=== PATIENT | male | born 1950 ===

== ENCOUNTER → 2021-08-26 | Outpatient (CLI) | payer OTHER, MEDICARE ==
[~2021-08-26] VITALS: Ht 182.9 cm; Wt 86.2 kg
[~2021-08-26] MED LIST: BACLOFEN 10MG T10 MG PO; EUTHYROX75 MCG PO; FENOFIBRATE145 M1 PO; FLEXERIL PO; HYDROCODON-ACE1 EAC7 PO; MELOXICAM15 MG PO; NEURONTIN 300M300 M2 PO; PROTONIX40 M2 PO; RELAFEN500 M1 PO
[2021-08-26 13:54] VITALS: BP 156/85
--- NOTE | 2021-08-26 14:16 | NUR ---
Pain Clinic Assessment: 1. History of Osteoarthritis: Not Applicable History of Rheumatoid Arthritis: Not Applicable 2. Height: 6 ft. 0 in. 182.9 cm. Weight: 190.0 lb. oz. 86.184 kg. Patient's BMI: 25.8 3. Vital Signs: BP: 156/85 Pulse: 73 Resp: 16 Temp: 02 Sat: 98 ECG Mon: 4. Pain Intensity: 7 5. Fall Risk: Dizziness: N Needs help standing or walking: N Fallen in the last 3 months: N Fall risk comments: 6. Patient on Blood Thinner: None 7. History of Hypertension: N 8. Opioid Therapy greater than 6 weeks: Y Opiate Contract Signed: 9. Risk Assessment Tool Provided: 10. Functional Assessment Tool: LOW 11. Recreational Drug Use: Never Drug Type: Tobacco Use: Never Smoker Tobacco Type: Amount or Packs/day: How Many Years: Alcohol Use: Yes Frequency: Weekly Quant: 1-2
--- NOTE | 2021-08-29 07:28 | HPC ---
[facility] [place] [address] PAIN MANAGEMENT CONSULTATION Name: ANDREW GONZALEZ Room #: REG CL M.R.#: [id number] Admission: 08/26/21 Attend Phys: Otto Staley DO Discharge: Date of : 50 Report #: [id number] THIS REPORT FOR: cc: NICOLASA DOWD MD,Otto Saldivar MD, DO ~ cc: Caitlin Dowd M.D. DATE OF SERVICE: 08/26/2021 REFERRING PHYSICIAN: Dr. Caitlin Dowd. CHIEF COMPLAINT: Upper back pain. HISTORY OF PRESENT ILLNESS: As you know, the patient is a very pleasant 71-year-old male with longstanding history of chronic upper back pain. He states pain began somewhere in 1988 and progressively worsened. He notes no specific injury or trauma that may have led to symptom development. He has been treated at various pain clinics in the past, undergoing treatments of trigger point injections, medication management, radiofrequency lesioning of the medial branch nerves of the lumbar spine, all of which according to the patient provided no improvement in symptoms. He reports undergoing radiofrequency lesioning at two different times with the various pain clinics in the [place] area, but again received no benefit with either of the procedures. He has trialled conservative treatment options as well [id number] medications, rest, relaxation and stretching exercises. He has undergone chiropractic and acupuncture therapy with transient benefit. Due to lack of improvement with conservative treatment options and concern of increasing back pain, debilitating enough that the patient is unable to participate in daily activities. The patient was referred to our clinic to discuss treatment options. The patient reports his pain is continuous and steady. He describes the pain as an aching, stabbing and pulling sensation. He places current pain score of 7/10. Daily average at 6-8/10. Worst pain has been is 10/10. The patient states pain is exacerbated with "most physical activity." Pain is improved with chiropractic adjustments and rest and relaxation. He has been referred to our service to discuss interventional treatment options to address upper back pain. PAST MEDICAL HISTORY: 1. Hypothyroidism. 2. GERD. 3. Chronic upper back pain. PAST SURGICAL HISTORY: 1. Tonsillectomy. 2. Rotator cuff repair. [address] [address] PAIN MANAGEMENT CONSULTATION Name: ANDREW GONZALEZ [facility] [id number] Admission: 08/26/21 Attend Phys: Otto Staley DO Discharge: Date of : 50 Report #: [id number] SOCIAL HISTORY: The patient denies tobacco, IV or illicit drug use. Admits to approximately 1-2 alcohol beverages per week. 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 He is not receiving workmen's compensation nor is he trying to obtain disability benefits. He is not in litigation in regards to pain. He is accompanied by his significant other, present in room today. REVIEW OF SYSTEMS: Positive for frequent urination, nocturia, chronic upper back pain exacerbated with activity, gastroesophageal reflux disease. All other review of systems negative per 12-point review of systems other than those listed in history of present illness. Pain impact score is 47/70, moderate interference of daily activities secondary to pain. ALLERGIES: PENICILLIN. CURRENT MEDICATIONS: Fenofibrate 145 mg once a day, pantoprazole 40 mg per day, levothyroxine 75 mcg per day, meloxicam 15 mg p.o. q.a.m., cyclobenzaprine 10 mg 3 times a day, hydrocodone/acetaminophen 5/325 one tab every 8 hours p.r.n. for pain. IMAGING: MRI of thoracic spine obtained 08/21/2021 shows mild thoracic spondylosis without acute fracture or malalignment. There is a right central disk protrusion with minimal indentation of the ventral thecal sac at T8-T9. There is a right central disk protrusion minimally indenting the ventral thecal sac at T9-T10. Small hiatal hernia. PQRS: The patient has known arthritic changes of the thoracic spine, lumbar spine, bilateral hips. No rheumatoid arthritis. He is placing current pain score at 7/10. He is not a fall risk, has not had a fall in last 3 months. He is not on blood thinners nor is he treated for hypertension. He is on chronic opioids, has a low opioid addiction potential based on assessment tool. Pain impact is 47/70, moderate interference of daily activities secondary to pain. PHYSICAL EXAMINATION: VITAL SIGNS: Blood pressure 156/85, pulse is 73, respiratory rate 16 and unlabored. The patient is 98% on room air, height 6 feet tall, weight 190 pounds, BMI calculated 25.8. GENERAL: Well-developed, well-nourished, well-hydrated 71-year-old male, appearing stated age. He is placing current pain score at around 7/10. HEENT: Normocephalic, atraumatic. Pupils are equal, round and responsive to light. He is wearing a mask in compliance with COVID-19 regulations and hospital policy. LUNGS: Appear clear. No wheeze, rhonchi, or rales. CARDIOVASCULAR: Regular. No appreciable gallop, no rub. ABDOMEN: Soft, nontender, nondistended. EXTREMITIES: Show no clubbing, no cyanosis and no edema. MUSCULOSKELETAL: The patient has some palpatory tenderness over the paraspinal [facility] [address] [place] [address] PAIN MANAGEMENT CONSULTATION Name: ANDREW GONZALEZ Room #: REG CLNarda Cindy.#: [id number] Admission: 08/26/21 Attend Phys: Otto Staley DO Discharge: Date of : 50 Report #: [id number] musculature of the upper thoracic area. Tenderness is in between the scapula at approximately T3 through T6 in distribution on the right, minimally tender on the left. No spinous process tenderness. Upper extremity strength equal and symmetrical 5/5, intact to light touch from C5 through T1 dermatomes and again from T1 through T12 dermatomes. There are no changes in skin color, texture concerning of any type of zoster. Deep inhalation exhalation causes no change in overall pain. Spurling's test is negative. ASSESSMENT: 1. Upper back pain. 2. Possible cervical radiculopathy with myotomal distribution. 3. Cervical spondylosis with radiculopathy. 4. Mild facet degenerative changes of the thoracic spine (age-related). 5. Myofascial pain. PLAN: 1. Based on today's physical exam and history the patient has provided, the description the patient uses in regards to pain, I am concerned of a myotomal distribution of a cervical radiculopathy. The distribution that the patient is experiencing is not related to the facet joints in the thoracic area as there is no concern of pain increased with inhalation and exhalation or movement in the area. There is no increase in pain with movement of the right upper extremity, which would be concerning of some type of myofascial symptoms related to the rhomboids. It does seem that her symptoms are more related to cervical radicular symptoms from myotomal distribution standpoint. We have discussed with the patient the concern we have in regards to cervical issues. The fact that he has mild arthritic changes in thoracic spine is normal for a 71-year-old male. He does have mild tenderness to palpation, but no specific trigger points in the musculature concerning of possible neuropathic cause. We discussed with the patient our concerns in our differential for diagnoses. He is agreeable with making adjustments in medication management at this time and further imaging of the cervical region. I am concerned that we will find some issues in the lower cervical spine, likely around the C7-T1 level, possibly as high as C6-C7. 2. The patient was sent for x-ray imaging of the cervical spine. We have requested the patient undergo the imaging today for further evaluation. I will contact the patient if there is concerning findings. I would suspect that we will find some arthritic changes, possibly even some findings of canal stenosis. We will keep you apprised as findings. 3. The patient will be started on gabapentin 300 mg dose. He will start 1 tab p.o. at bedtime for 3 nights, then increase to 2 tabs p.o. at bedtime for 3 nights, then use 3 tabs p.o. at bedtime. I did advise the patient to watch for side effects including sleepiness, disorientation, confusion and mental slowing with the medication. If he notes side effects, he may discontinue the medication. We are attempting to see if we can gain some analgesic benefit with that therapy. [address] [address] PAIN MANAGEMENT CONSULTATION Name: ANDREW GONZALEZ Room #: REG EMMETT Sher#: [id number] Admission: 08/26/21 Attend Phys: Otto Staley DO Discharge: Date of : 50 Report #: [id number] 4. The patient and I discussed all the previous evaluations and treatments, he has had for this upper thoracic pain. He has had radiofrequency lesioning for which the patient indicated no benefit even though he has had that twice. He has undergone physical therapy, which has been minimally beneficial and participate in stretching exercises at home on a daily basis. He has had other injections including thoracic epidural injections, all of which have provided no benefit. Based on those lack of efficacy with treatment directly at the site, it would further confirm a possible myotomal distribution of a cervical radiculopathy. We will keep you apprised of the workup in regards to this issue. 5. I would like to thank the referring physician, Dr. Caitlin Dowd for the opportunity to see this patient in consultation. We will keep you apprised of his response to treatment as we address upper back pain. Again, we wish to thank you for the opportunity to see the patient in consultation. <ELECTRONICALLY SIGNED> By: Otto Staley DO 08/29/21 0728 [id number] 0120 Otto Staley DO /nt
== END | disposition home or self-care (01) ==
LOC: PAIN 10:42
PROVIDERS: ATTEND Anesthesiology Pain Medicine
DX: M54.9 Dorsalgia, unspecified (principal); M47.22 Other spondylosis with radiculopathy, cervical region; M51.34 Other intervertebral disc degeneration, thoracic region; M79.18 Myalgia, other site; E03.9 Hypothyroidism, unspecified; M19.90 Unspecified osteoarthritis, unspecified site; K21.9 Gastro-esophageal reflux disease without esophagitis; Z98.890 Other specified postprocedural states; Z79.899 Other long term (current) drug therapy; Z87.891 Personal history of nicotine dependence

== ENCOUNTER → 2021-09-09 | Outpatient (CLI) | payer OTHER, MEDICARE ==
[~2021-09-09] VITALS: Ht 182.9 cm; Wt 88.6 kg
[~2021-09-09] MED LIST changes: +CLONAZEPAM0.25 MG PO
[2021-09-09 11:05] VITALS: BP 156/83
--- NOTE | 2021-09-09 11:17 | NUR ---
Pain Clinic Assessment: 1. History of Osteoarthritis: Not Applicable History of Rheumatoid Arthritis: Not Applicable 2. Height: 6 ft. 0 in. 182.9 cm. Weight: 195.4 lb. oz. 88.633 kg. Patient's BMI: 26.5 3. Vital Signs: BP: 156/83 Pulse: 60 Resp: 14 Temp: 02 Sat: 98 ECG Mon: 4. Pain Intensity: 2 TO 3;7 AT NITE 5. Fall Risk: Dizziness: N Needs help standing or walking: N Fallen in the last 3 months: N Fall risk comments: 6. Patient on Blood Thinner: None 7. History of Hypertension: N 8. Opioid Therapy greater than 6 weeks: Y Opiate Contract Signed: 9. Risk Assessment Tool Provided: 10. Functional Assessment Tool: LOW 11. Recreational Drug Use: Never Drug Type: Tobacco Use: Never Smoker Tobacco Type: Amount or Packs/day: How Many Years: Alcohol Use: Yes Frequency: Special Occasions Quant: 1
--- NOTE | 2021-09-10 07:55 | HPC ---
[facility] [place] [address] PAIN MANAGEMENT CONSULTATION Name: ANDREW GONZALEZ Room #: REG [facility] MKamron.#: [id number] Admission: 09/09/21 Attend Phys: Otto Staley DO Discharge: Date of : 50 Report #: [id number] THIS REPORT FOR: cc: YANIV DOWD MD,Otto Saldivar MD, DO ~ cc: Yaniv Dowd DATE OF SERVICE: 09/09/2021 REFERRING PHYSICIAN: Dr. Yaniv oDwd. CHIEF COMPLAINT: Upper back pain, bilateral upper extremity pain with paresthesias. HISTORY OF PRESENT ILLNESS: As you know, the patient is a very pleasant 71-year-old male with longstanding history of chronic upper back pain. He states pain began somewhere in 1988, progressively worsened. He sought treatment at multiple areas with minimal benefit in his symptoms. He was seen in consultation at our clinic on 08/26/2021. He was diagnosed at that visit with cervical radiculopathy and cervical spondylosis with radiculopathy. The patient was sent for x-ray imaging, for which he returns today to discuss the findings. He was started on gabapentin and baclofen, for which the patient is noticing excellent benefit. The patient states the combination of medications have provided the patient with about 80% improvement in overall symptoms, the best he has been in years. He returns today reporting no side effects to medication. He does report to us that he has been experiencing increasing bilateral numbness and tingling that radiated into his hands bilaterally. He states that when he wakes up at night he can barely hold a glass of water as he feels weak in the hands and there is heaviness in his bilateral arms consistent with cervical radiculopathy. This further confirms the diagnosis of cervical radiculopathy. CURRENT MEDICATIONS: Fenofibrate 145 mg once a day, pantoprazole 40 mg per day, levothyroxine 75 mcg per day, meloxicam 15 mg p.o. q.a.m., baclofen 10 mg t.i.d., gabapentin 900 mg p.o. at bedtime, hydrocodone 5/325 mg 1 tab every 8 hours p.r.n. pain. SOCIAL HISTORY: The patient denies tobacco, IV or illicit drug use. Admits to occasional alcohol beverage. 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 He is accompanied by his significant other present in room today. IMAGING: X-ray of the cervical spine shows vertebral heights are maintained. There is a grade 1 C4-C5 anterolisthesis. There is moderate disk height loss at C5-6 and C6-7. There is a grade 1 C7-T1 anterolisthesis noted. PQRS: The patient has known arthritic changes of the cervical spine, thoracic [facility] [address] [place] [address] PAIN MANAGEMENT CONSULTATION Name: ANDREW GONZALEZ Room #: REG CL Cindy.#: [id number] Admission: 09/09/21 Attend Phys: Otto Staley DO Discharge: Date of : 50 Report #: [id number] spine, lumbar spine, bilateral hips. No rheumatoid arthritis. He is placing current pain anywhere from 2-3/10. He is not a fall risk, has not had a fall in last 3 months. He is not on blood thinners, but not on any hypertensive agents. He is on chronic opioids, has a low opioid addiction potential. Pain impact is 47/70, moderate interference of daily activities secondary to pain. PHYSICAL EXAMINATION: VITAL SIGNS: Blood pressure 156/83, pulse 60, respiratory rate 14 and unlabored. The patient 98% on room air. Height 6 feet tall, weight 195.4 pounds, BMI calculated 26.5. GENERAL: Well-developed, well-nourished, well-hydrated 71-year-old male, appearing stated age. Pain is rated today around 2-3/10. HEENT: Normocephalic, atraumatic. Pupils equal, round and responsive. He is wearing a mask in compliance with COVID-19 regulations. EXTREMITIES: Show no clubbing, no cyanosis, no edema. MUSCULOSKELETAL: Once again, the patient chose palpatory tenderness over the paraspinal musculature of the upper thoracic spine. Upper extremity strength appears symmetrical 5/5, intact to light touch from C5 through T1 dermatomes. No changes in skin color or texture is again noted. Cervical provocation testing is met with slight increase in pain. Spurling test is negative. ASSESSMENT: 1. Cervical radiculopathy. 2. Cervical spondylosis with radiculopathy. 3. Spondylolisthesis of the cervical spine. 4. Mild facet arthropathy of the thoracic spine. 5. Myofascial pain. PLAN: 1. Based on today's physical exam and the history, the patient has provided and the description the patient uses in regards to pain, it would appear the patient is suffering from progressively worsening cervical radiculopathy. The patient reports today, which he did not report in the past that he is experiencing bilateral upper extremity numbness and tingling that he notices on a daily basis. He is also experiencing head of product strength changes at night stating he can barely hold onto a glass of water due to this weakness. This is all consistent with cervical radiculopathy. The patient and I discussed again today the treatment options he have to address cervical radiculopathy. Following was discussed with the patient. We discussed physical therapy, stretching exercises and traction techniques. The patient states he has started traction techniques with his son who is a local chiropractor and is a referral base for our clinic. I am confident that he is receiving excellent treatment with the therapies. We discussed medication management, adjusting for further increase in neuropathic medication. He is denying any side effects and has noted benefit. We discussed cervical epidural [facility] [address] [place] [address] PAIN MANAGEMENT CONSULTATION Name: ANDREW GONZALEZ Room #: REG [facility].#: [id number] Admission: 09/09/21 Attend Phys: Otto Staley DO Discharge: Date of : 50 Report #: [id number] injection under fluoroscopic guidance to address the symptoms directly. We also did then discuss surgical options with the patient, though more definitive imaging would have to be obtained before we could consider that as an option. After reviewing risks and benefits of all proposed treatment options, the patient chose to make adjustments in medication management with plans to possibly undergo a cervical epidural injection in the very near future. 2. The patient will increase his gabapentin from 900 mg p.o. at bedtime to 1200 mg p.o. at bedtime. He will continue for 3 nights. If no improvement in symptoms and no side effects, then increase to 1500 mg p.o. at bedtime. I believe that the neuropathic medication will benefit the patient from a pain standpoint and likely improve his sleep, which is being interrupted by this pain. It will likely also improve the numbness and tingling and weakness he is experiencing in the upper extremities after arising from bed and attempting to drink water or utilize his upper extremities. The patient does not need a refill of gabapentin at this time, though if he does he can contact our clinic. 3. We are planning to have the patient undergo a cervical epidural injection under fluoroscopic guidance the first week of September. I wish to place this injection just prior to his leaving for his trip to the [facility]. I believe this could significantly improve the patient's overall symptoms and improve his functional capacity. We are hopeful that the adjustments in medication management will provide this, though we will utilize a cervical epidural injection if necessary. We have made the patient a tentative appointment to undergo the procedure, but if he is doing well with medications, we can delay that injection. He can contact our clinic if he is doing well and we will cancel that appointment. Otherwise, we will see him for a cervical epidural injection the first week of September. 4. The patient was provided a prescription of clonazepam 0.5 mg one-half tab to 1 tab p.o. at bedtime p.r.n. for anxiety, muscle spasming and sleep. I have advised the patient to only use the medication when his sleep is not noted to be normal, meaning that he is not falling asleep within the first one-hour of lying down. He is not to take the medication prophylactically. He was advised of the potential risks with the medication including possible physiologic and psychological dependence. The patient was given a prescription #30 to trial. 5. We will see the patient back in followup visit first part of September for possible cervical epidural injection. I am hopeful the patient will see good benefit with the adjustments made in medication today. <ELECTRONICALLY SIGNED> By: Otto Staley DO 09/10/21 [id number] 0120 Otto Staley DO /nt
== END ==
LOC: PAIN 07:03
PROVIDERS: ATTEND Anesthesiology Pain Medicine
DX: M47.22 Other spondylosis with radiculopathy, cervical region (principal); M43.12 Spondylolisthesis, cervical region; M47.24 Other spondylosis with radiculopathy, thoracic region; M79.18 Myalgia, other site; M79.661 Pain in right lower leg; M79.662 Pain in left lower leg; Z79.899 Other long term (current) drug therapy

== ENCOUNTER → 2021-09-30 | Outpatient (CLI) | payer OTHER, MEDICARE ==
[~2021-09-30] VITALS: Ht 182.9 cm; Wt 91.7 kg
[2021-09-30 10:14] VITALS: BP 154/70
--- NOTE | 2021-09-30 10:29 | NUR ---
Pain Clinic Assessment: 1. History of Osteoarthritis: Not Applicable History of Rheumatoid Arthritis: Not Applicable 2. Height: 6 ft. 0 in. 182.9 cm. Weight: 202.2 lb. oz. 91.717 kg. Patient's BMI: 27.4 3. Vital Signs: BP: 154/70 Pulse: 63 Resp: 14 Temp: 02 Sat: 99 ECG Mon: 4. Pain Intensity: 2 TO 3;7 AT NITE 5. Fall Risk: Dizziness: N Needs help standing or walking: N Fallen in the last 3 months: N Fall risk comments: 6. Patient on Blood Thinner: None 7. History of Hypertension: N 8. Opioid Therapy greater than 6 weeks: Y Opiate Contract Signed: 9. Risk Assessment Tool Provided: 10. Functional Assessment Tool: LOW 11. Recreational Drug Use: Never Drug Type: Tobacco Use: Never Smoker Tobacco Type: Amount or Packs/day: How Many Years: Alcohol Use: Yes Frequency: Quant:
--- NOTE | 2021-10-01 08:06 | HPC ---
[facility] [address] [place] [address] PAIN MANAGEMENT CONSULTATION Name: ANDREW GONZALEZ Room #: REG CL M.R.#: [id number] Admission: 09/30/21 Attend Phys: Otto Staley DO Discharge: Date of : 50 Report #: [id number] THIS REPORT FOR: cc: YANIV DOWD MD,Otto Saldivar MD, DO ~ cc: Dr. Yaniv Dowd DATE OF SERVICE: 09/30/2021 REFERRING PHYSICIAN: Dr. Yaniv Dowd. CHIEF COMPLAINT: Neck pain, bilateral upper extremity pain and upper back pain. HISTORY OF PRESENT ILLNESS: As you know, the patient is a very pleasant 71-year-old male with longstanding history of chronic neck pain, upper back pain and bilateral upper extremity pain, which began somewhere in 1988 and progressively worsened. We saw the patient in consultation per the request of referring physician on 08/26/2021, diagnosed with cervical radiculopathy and cervical spondylosis with radiculopathy. We discussed treatment options to start the patient on medications. He is taking gabapentin 1200 mg at night, noticing an improvement in symptoms throughout the day. Unfortunately, the nighttime dose is not providing complete benefit for sleep. He continues to have to rely on his muscle relaxant and a benzodiazepine. He returns today in followup visit to undergo cervical epidural injection under fluoroscopic guidance. He has plans for trip to [place] in 1 week. He returns for medication refills as well. He has suffered no new injury, no new trauma or any changes in medication management since our last visit. ALLERGIES: PENICILLIN. CURRENT MEDICATIONS: Clonazepam 0.5 mg once a day, gabapentin 1200 mg p.o. at bedtime, Relafen 500 mg b.i.d., baclofen 10 mg t.i.d., hydrocodone/acetaminophen 5/325 one tab every 8 hours p.r.n. for pain, cyclobenzaprine 10 mg t.i.d. p.r.n., meloxicam 15 mg once a day, levothyroxine 75 mcg per day, pantoprazole 40 mg per day, fenofibrate 145 mg once a day. SOCIAL HISTORY: The patient denies tobacco, IV or illicit drug use. Admits to occasional alcohol beverage. 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 IMAGING: No new imaging available. PQRS: The patient has known arthritic changes of the cervical spine, thoracic spine, lumbar spine, bilateral hips. No rheumatoid arthritis. He is placing pain intensity today at 2-3/10 in the daytime hours, at night it can reach as high as 7/10. He is not a fall risk, has not had a fall in last 3 months, [place] [address] PAIN MANAGEMENT CONSULTATION Name: ANDREW GONZALEZ Room #: REG CLI ..#: [id number] Admission: 09/30/21 Attend Phys: Otto Staley DO Discharge: Date of : 50 Report #: [id number] on blood thinners nor is he treated for hypertension. He is on chronic opioids, has a low opioid addiction potential based on assessment tool. Pain impact is 47/70, severe interference of daily activities secondary to pain. PHYSICAL EXAMINATION: VITAL SIGNS: Blood pressure 154/70, pulse 63, respiratory rate 14 and unlabored. The patient is 99% on room air, height 6 feet tall, weight 202.2 pounds, BMI calculated 27.4. GENERAL: Well-developed, well-nourished, well-hydrated 71-year-old male, appearing stated age, pain is rated today at a 2-7/10 depending on activity. HEENT: Normocephalic, atraumatic. Pupils are round. He is wearing a mask in compliance with COVID-19 regulations and hospital policies. EXTREMITIES: Show no clubbing, no cyanosis, no edema. MUSCULOSKELETAL: Upper extremity strength is symmetrical, 5/5, intact to light touch from L1 through S2 dermatomes. Spurling's test is negative. Cervical provocation testing is met with increasing neck pain. ASSESSMENT: 1. Cervical radiculopathy. 2. Cervical spondylosis with radiculopathy. 3. Spondylolisthesis of the cervical spine. 4. Mild facet arthropathy of the thoracic spine. 5. Myofascial pain. PLAN: 1. The patient returns today in followup visit requesting to undergo cervical epidural injection under fluoroscopic guidance to address any residual pain he is experiencing in the evening hours. He states that the gabapentin, clonazepam and baclofen are working really well for pain control during the daytime hours, but unfortunately he has continued to experience symptoms at night that leads to insomnia. He returns to undergo cervical epidural injection. He has been advised the risks and benefits of the procedure. These risks include but are not necessarily limited to bleeding, bruising, infection, worsening pain, no relief of pain, also risk of temporary or permanent muscle weakness, temporary or permanent nerve damage, possible paralysis, post-dural puncture headache and . The patient states understood and wished to proceed. 2. The patient was provided refill prescription of clonazepam 0.25 mg 1 tab p.o. at bedtime, I have given the patient #30 tablets with no refills. The patient was provided the prescription via e-scribe to local pharmacy. 3. The patient was provided refill prescription of his baclofen 10 mg dose 1 tab p.o. t.i.d., I have given the patient #90 tablets with refills. Prescription sent via e-scribe to local pharmacy. 4. The patient was provided refill prescription of his hydrocodone 5/325 mg 1 tab p.o. q. 6 hours p.r.n. for pain, I have given the patient #60 tablets to release today. The patient will utilize the medication only as directed. He is not new to this medication and has been taking this for an extended period of [facility] [address] [place] [address] PAIN MANAGEMENT CONSULTATION Name: ANDREW GONZALEZ Room #: REG CLNarda White.#: [id number] Admission: 09/30/21 Attend Phys: Otto Staley DO Discharge: Date of : 50 Report #: [id number] time. He is tolerating the medication well. We have provided a prescription for the patient to take with him today. It was sent via e-scribe to local pharmacy. 5. The patient was provided refill prescription of gabapentin 300 mg dose. He is to take 4 tabs p.o. at bedtime, given #120 with refills. 6. Plan to see the patient back in followup visit on an as needed basis for medication management and to undergo the next in the series of cervical epidural injection. I am hopeful the patient will see good and prolonged benefit with the injection provided today. PROCEDURE NOTE DESCRIPTION OF PROCEDURE: C7-T1 cervical epidural steroid injection under fluoroscopic guidance. This is the first procedure of the first series that the patient is undergoing. After obtaining written consent, the patient was taken back to the fluoroscopy suite and placed in a prone position with separate pillows under chest and forehead to decrease cervical lordosis. The skin overlying the cervical area was prepped and draped in an aseptic fashion. The C7-T1 vertebral interspace was identified by AP fluoroscopy. The skin and subcutaneous tissue overlying the target site of injection was anesthetized using 3 mL of 1% lidocaine. A 20-gauge 3.5 inch Tuohy needle was advanced under fluoroscopic guidance toward the epidural space using a midline approach. The epidural space was identified using a loss of resistance to air technique. After negative aspiration for heme or cerebrospinal fluid, a total of 1 mL of Omnipaque was injected. A cervical epidurogram was confirmed using AP and oblique fluoroscopy. After negative aspiration for heme or cerebrospinal fluid, 5 mL of a solution containing 2 mL 40 mg per mL 80 mg total triamcinolone along with 3 mL of lidocaine 1% was injected in increments. Contrast spread was noted from posterior epidural space. The needle was then retracted approximately skilled nursing and the needle track was flushed with 1 mL of 1% lidocaine. There were no apparent new sensory deficits in the upper extremities present following the procedure. A sterile bandage was placed over the injection site. The heart rate, pulse oximetry and blood pressure were continuously monitored after the procedure. There were no apparent complications. The patient tolerated the procedure well and was carefully escorted in the recovery room in stable condition. After meeting discharge criteria, the patient was discharged home. <ELECTRONICALLY SIGNED> By: Otto Staley DO 10/01/21 08 1141 19 Otto Staley DO /nt
== END | disposition home or self-care (01) ==
LOC: PAIN 09:08
PROVIDERS: ATTEND Anesthesiology Pain Medicine
DX: M47.22 Other spondylosis with radiculopathy, cervical region (principal); M43.16 Spondylolisthesis, lumbar region; M79.18 Myalgia, other site; M19.90 Unspecified osteoarthritis, unspecified site; Z98.890 Other specified postprocedural states; Z79.899 Other long term (current) drug therapy; Z79.891 Long term (current) use of opiate analgesic; Z88.0 Allergy status to penicillin